=== PATIENT | male | born 1940 | race Caucasian/White ===

== ENCOUNTER 2017-06-09 07:56 | Inpatient (IN) | payer OTHER ==
[~2017-06-09] VITALS: Ht 180.3 cm; Wt 85.4 kg
[2017-06-09 09:09] LABS: BASOPHIL % 0.3 % (0-2)
[2017-06-09 09:12] LABS: CALCIUM 8.7 mg/dL (8.5-10.1); CARBON DIOXIDE 22.4 mmol/L (21-32); CHLORIDE SERUM 103 mmol/L (98-107); CREATININE SERUM 1.3 mg/dL (0.7-1.3); GLUCOSE SERUM 111 mg/dL (74-106); POTASSIUM SERUM 3.9 mmol/L (3.5-5.1); SODIUM SERUM 137 mmol/L (136-145)
[2017-06-09 09:14] LABS: RED CELL DISTRIBUTION WIDTH 17.2 % (11.5-14.5)
[2017-06-09 09:15] LABS: PLATELET COUNT 116 x10^3mcL (130-400)
[2017-06-09 09:16] LABS: ALKALINE PHOSPHATASE 220 U/L (46-116); ALT/SGPT 44 U/L (16-63); AST/SGOT 63 U/L (15-37); CHOLESTEROL 184 mg/dL (<200); HDL CHOLESTEROL 57 mg/dL (40-60); MAGNESIUM 1.8 mg/dL (1.8-2.4); PHOSPHOROUS 2.3 mg/dL (2.5-4.9); TOTAL PROTEIN, SERUM 7.2 g/dL (6.4-8.2)
[2017-06-09 09:19] LABS: UA SPECIFIC GRAVITY >=1.030 (1.005-1.035); microscopic required? YES; urine erythrocyte 3+ (NEGATIVE)
[2017-06-09] MEDS ORDERED: GLIPIZIDE2.5 M1 PO (10:25)
[2017-06-09] MEDS ORDERED: LISINOPRIL2.5 MG PO (10:25)
[2017-06-09] MEDS ORDERED: LEVOTHYROXIN0.025 M2 PO (10:26)
[2017-06-09 12:30] VITALS: BP 116/56
[2017-06-09 13:28] VITALS: BP 116/56
[2017-06-09 13:38] LABS: T3 TOTAL 0.63 ng/mL
[2017-06-09 14:00] LABS: FREE T4 1.56 ng/dL (0.76-1.46); FREE THYROXINE INDEX 3.6 ug/dL (1.4-4.5); T4(THYROXINE) 9.5 ug/dL (4.7-13.3)
[2017-06-09 14:13] LABS: CHOLESTEROL/HDL RATIO 3.2
[2017-06-09 17:08] VITALS: BP 110/52
[2017-06-09 19:04] VITALS: Ht 180.3 cm; Wt 85.4 kg
[2017-06-09 20:22] VITALS: BP 102/42
[2017-06-10 05:21] VITALS: BP 98/51
[2017-06-10 07:23] LABS: CALCIUM 7.8 mg/dL (8.5-10.1); CARBON DIOXIDE 23.2 mmol/L (21-32); CHLORIDE SERUM 108 mmol/L (98-107); CREATININE SERUM 1.1 mg/dL (0.7-1.3); GLUCOSE SERUM 69 mg/dL (74-106); MAGNESIUM 1.8 mg/dL (1.8-2.4); PHOSPHOROUS 2.1 mg/dL (2.5-4.9); POTASSIUM SERUM 4.4 mmol/L (3.5-5.1); SODIUM SERUM 139 mmol/L (136-145)
[2017-06-10 07:30] LABS: BASOPHIL % 0.2 % (0-2); PLATELET COUNT 88 x10^3mcL (130-400); RED CELL DISTRIBUTION WIDTH 17.8 % (11.5-14.5)
[2017-06-10 08:29] VITALS: BP 120/73
[2017-06-10 08:34] VITALS: BP 110/63
[2017-06-10 12:42] VITALS: BP 129/58
[2017-06-10 15:28] LABS: AMPHETAMINE QUAL UR NONE DETECTED (NEG <=1000)
[2017-06-10 17:32] VITALS: BP 135/62
[2017-06-10 21:06] VITALS: BP 110/60
[2017-06-11 05:19] VITALS: BP 100/41
[2017-06-11 06:53] LABS: BASOPHIL % 0.6 % (0-2)
[2017-06-11 07:31] LABS: CALCIUM 7.9 mg/dL (8.5-10.1); CARBON DIOXIDE 24.1 mmol/L (21-32); CHLORIDE SERUM 108 mmol/L (98-107); GLUCOSE SERUM 71 mg/dL (74-106); POTASSIUM SERUM 4.5 mmol/L (3.5-5.1); SODIUM SERUM 138 mmol/L (136-145)
[2017-06-11 07:43] LABS: PLATELET COUNT 103 x10^3mcL (130-400); RED CELL DISTRIBUTION WIDTH 17.8 % (11.5-14.5)
[2017-06-11 09:38] VITALS: BP 117/70
[2017-06-11] MEDS ORDERED: KEFLEX500 M1 PO (12:06)
[2017-06-11] MEDS ORDERED: BD LACTINEX1.4 MG PO (12:07)
== END 2017-06-11 13:50 | disposition home or self-care (01) | DRG 441 ==
LOC: ED 07:56 → DU 10:08
PROVIDERS: Emergency Medicine; Family Medicine
DX: K72.90 Hepatic failure, unspecified without coma (principal); N17.0 Acute kidney failure with tubular necrosis; N39.0 Urinary tract infection, site not specified; J98.11 Atelectasis; E44.0 Moderate protein-calorie malnutrition; B96.20 Unspecified Escherichia coli [E. coli] as the cause of diseases classified elsewhere; R31.0 Gross hematuria; E86.0 Dehydration; K74.60 Unspecified cirrhosis of liver; E11.51 Type 2 diabetes mellitus with diabetic peripheral angiopathy without gangrene; E78.5 Hyperlipidemia, unspecified; E03.9 Hypothyroidism, unspecified
CPT/HCPCS: 82962; 83880; 84439; 87804; 94150; J0696; J2405; J3490; J7030; Q0092

== ENCOUNTER 2017-11-10 14:53 | Inpatient (IN) | payer OTHER ==
[~2017-11-10] VITALS: Ht 180.3 cm; Wt 98.4 kg
[~2017-11-10 14:53] MED LIST: BD LACTINEX1.4 MG PO; GLIPIZIDE2.5 M1 PO; KEFLEX500 M1 PO; LEVOTHYROXIN0.025 M2 PO; LISINOPRIL2.5 MG PO
[2017-11-10 16:06] LABS: BASOPHIL % 0.2 % (0-2); PLATELET COUNT 168 x10^3mcL (130-400)
[2017-11-10 16:29] LABS: CK-MB 1.9 ng/mL (0-3.6)
[2017-11-10 16:38] LABS: RED CELL DISTRIBUTION WIDTH 19.8 % (11.5-14.5)
[2017-11-10 17:28] LABS: CALCIUM 8.5 mg/dL (8.5-10.1); CARBON DIOXIDE 20.4 mmol/L (21-32); CHLORIDE SERUM 107 mmol/L (98-107); CREATININE SERUM 1.6 mg/dL (0.7-1.3); GLUCOSE SERUM 132 mg/dL (74-106); SODIUM SERUM 138 mmol/L (136-145)
[2017-11-10 17:35] LABS: ALKALINE PHOSPHATASE 137 U/L (46-116); ALT/SGPT 67 U/L (16-63); AST/SGOT 110 U/L (15-37); BILIRUBIN TOTAL 2.48 mg/dL (0.20-1.00)
[2017-11-10 17:37] LABS: ALBUMIN 1.9 g/dL (3.4-5.0); TOTAL PROTEIN, SERUM 5.2 g/dL (6.4-8.2)
[2017-11-10 17:56] LABS: microscopic required? YES; urine erythrocyte NEGATIVE (NEGATIVE)
[2017-11-10 18:03] LABS: AMPHETAMINE QUAL UR NONE DETECTED (See below)
[2017-11-10 19:31] LABS: IRON 82 ug/dL (65-170); TOTAL IRON BINDING CAPACITY 118 ug/dL (250-450)
[2017-11-10 19:35] LABS: MAGNESIUM 2.6 mg/dL (1.8-2.4); PHOSPHOROUS 2.9 mg/dL (2.5-4.9)
[2017-11-10 19:43] LABS: CHOLESTEROL/HDL RATIO 5.5; FREE T4 1.09 ng/dL (0.76-1.46); FREE THYROXINE INDEX 2.1 ug/dL (1.4-4.5); T4(THYROXINE) 6.2 ug/dL (4.7-13.3)
[2017-11-10 19:50] LABS: T3 TOTAL 0.6 ng/mL
[2017-11-10 19:53] LABS: RED BLOOD CELLS 3.2 M/mm3 (4.52-5.90)
[2017-11-10 21:44] VITALS: BP 128/104
[2017-11-10 21:52] VITALS: Ht 180.3 cm; Wt 98.4 kg
[2017-11-11] VITALS (13 sets, daily range): BP systolic 78–133; BP diastolic 36–85
[2017-11-11 02:53] LABS: CALCIUM 7.6 mg/dL (8.5-10.1); CHLORIDE SERUM 109 mmol/L (98-107); CREATININE SERUM 1.9 mg/dL (0.7-1.3); GLUCOSE SERUM 121 mg/dL (74-106); MAGNESIUM 2.1 mg/dL (1.8-2.4); PHOSPHOROUS 4.4 mg/dL (2.5-4.9); SODIUM SERUM 140 mmol/L (136-145)
[2017-11-11 02:56] LABS: POTASSIUM SERUM 5.9 mmol/L (3.5-5.1)
[2017-11-11 03:13] LABS: PLATELET COUNT 153 x10^3mcL (130-400)
[2017-11-11 03:23] LABS: RED CELL DISTRIBUTION WIDTH 19.9 % (11.5-14.5)
[2017-11-11 03:46] LABS: BAND NEUTROPHIL 3 % (0-10); METAMYELOCTE 4 % (0-2); MONOCYTE 6 % (0-7); MYELOCYTE 1 % (0-2); SEGMENTED NEUTROPHILS 75 % (37-75)
[2017-11-11 03:50] LABS: acanthocyte (spur cell) 2+; ovalocyte/elliptocyte 1+; rbc morphology (normal/abnorm) ABNORMAL (NORMAL)
[2017-11-11 03:51] LABS: PLATELET MORPHOLOGY PLATELETS NORMAL
[2017-11-11 06:59] LABS: PLATELET COUNT 144 x10^3mcL (130-400)
[2017-11-11 07:05] LABS: CALCIUM 7.5 mg/dL (8.5-10.1); CARBON DIOXIDE 10.8 mmol/L (21-32); CHLORIDE SERUM 109 mmol/L (98-107); CREATININE SERUM 2.1 mg/dL (0.7-1.3); GLUCOSE SERUM 165 mg/dL (74-106); SODIUM SERUM 139 mmol/L (136-145)
[2017-11-11 07:06] LABS: POTASSIUM SERUM 6.2 mmol/L (3.5-5.1)
[2017-11-11 07:27] LABS: RED CELL DISTRIBUTION WIDTH 20.2 % (11.5-14.5)
[2017-11-11 15:54] LABS: CALCIUM 7.7 mg/dL (8.5-10.1); CARBON DIOXIDE 12.6 mmol/L (21-32); CHLORIDE SERUM 110 mmol/L (98-107); CREATININE SERUM 2.1 mg/dL (0.7-1.3); GLUCOSE SERUM 244 mg/dL (74-106); SODIUM SERUM 140 mmol/L (136-145)
[2017-11-11 15:56] LABS: PLATELET COUNT 122 x10^3mcL (130-400); RED CELL DISTRIBUTION WIDTH 19.6 % (11.5-14.5)
[2017-11-11 16:22] LABS: BAND NEUTROPHIL 10 % (0-10); SEGMENTED NEUTROPHILS 69 % (37-75)
[2017-11-11 16:24] LABS: METAMYELOCTE 2 % (0-2); MONOCYTE 6 % (0-7); MYELOCYTE 3 % (0-2)
[2017-11-11 16:25] LABS: rbc morphology (normal/abnorm) ABNORMAL (NORMAL)
[2017-11-11 16:26] LABS: PLATELET MORPHOLOGY PLATELETS NORMAL
[2017-11-11 16:27] LABS: acanthocyte (spur cell) 1+; ovalocyte/elliptocyte 1+
[2017-11-11 18:03] LABS: BAND NEUTROPHIL 5 % (0-10); SEGMENTED NEUTROPHILS 75 % (37-75)
[2017-11-11 18:04] LABS: MONOCYTE 6 % (0-7); rbc morphology (normal/abnorm) ABNORMAL (NORMAL)
[2017-11-11 18:05] LABS: PLATELET MORPHOLOGY PLATELETS DECREASED; ovalocyte/elliptocyte 1+; schistocyte (helmet cell) 1+
== END 2017-11-11 21:59 | disposition expired | DRG 871 ==
LOC: ED 14:53 → DU 18:41 → IC 18:41 → DU 21:15 → IC 11-11 02:45
PROVIDERS: Emergency Medicine; Family Medicine; General Practice
PROC: 5A1935Z Respiratory Ventilation, Less than 24 Consecutive Hours (ICD-10-PCS; principal; 2017-11-11)
PROC: 0BH17EZ Insertion of Endotracheal Airway into Trachea, Via Natural or Artificial Opening (ICD-10-PCS; 2017-11-11)
PROC: 05HM33Z Insertion of Infusion Device into Right Internal Jugular Vein, Percutaneous Approach (ICD-10-PCS; 2017-11-11)
PROC: B543ZZA Ultrasonography of Right Jugular Veins, Guidance (ICD-10-PCS; 2017-11-11)
DX: A41.9 Sepsis, unspecified organism (principal); J69.0 Pneumonitis due to inhalation of food and vomit; E43 Unspecified severe protein-calorie malnutrition; N17.0 Acute kidney failure with tubular necrosis; R65.21 Severe sepsis with septic shock; K92.2 Gastrointestinal hemorrhage, unspecified; K70.30 Alcoholic cirrhosis of liver without ascites; E11.51 Type 2 diabetes mellitus with diabetic peripheral angiopathy without gangrene; K72.90 Hepatic failure, unspecified without coma; I10 Essential (primary) hypertension; E03.9 Hypothyroidism, unspecified; E87.5 Hyperkalemia; Z68.27 Body mass index [BMI] 27.0-27.9, adult; Z51.5 Encounter for palliative care
CPT/HCPCS: 36600; 83880; 84439; 85378; C9113; J0456; J0696; J1642; J1815; J1956; J2060; J2270; J2354; J3486; J3490; J7030; J7040; J7042; J7613; J7620; P9047; Q0092